=== PATIENT | male | born 1955 | race Caucasian/White ===

== ENCOUNTER 2017-12-08 09:33 | Outpatient (CLI) | payer OTHER, SELFPAY ==
[2017-12-08 11:01] LABS: Bilirubin Negative (Negative); Blood Negative (Negative); Clarity Clear; Glucose Negative (Negative); Ketones Negative (Negative); Leukocyte Esterase Negative (Negative); Nitrite Negative (Negative); Specific Gravity 1.025 (1.005-1.025); Urobilinogen 0.2 EU/dL (Up TO 0.2)
[2017-12-09 10:35] LABS: PSA, Screening 1.1 ng/ml (0-4.5)
== END 2017-12-08 09:53 ==
PROVIDERS: PCP Emergency Medicine; Visit Provider Emergency Medicine
DX: R31.9 Hematuria, unspecified (principal); Z12.5 Encounter for screening for malignant neoplasm of prostate; N40.0 Benign prostatic hyperplasia without lower urinary tract symptoms
CPT/HCPCS: 36415; 84153; 81003

== ENCOUNTER 2018-12-09 01:52 | Outpatient (CLI) | payer OTHER, SELFPAY | END 2018-12-09 02:12 | PROVIDERS: PCP Emergency Medicine; Visit Provider Nurse Practitioner | DX: R35.0 Frequency of micturition (principal); Z12.5 Encounter for screening for malignant neoplasm of prostate | CPT/HCPCS: 36415; 84153 ==

== ENCOUNTER 2019-01-07 08:54 | Emergency (ER) | payer OTHER, SELFPAY ==
[2019-01-07 09:03] VITALS: BP 126/80; PULSE 66; RESP 12; TEMP 36.7; O2SAT 97
--- NOTE | 2019-01-07 09:13 | ED.GENADUL_ITS ---
Discharge Plan Disposition Patient Disposition: HOME Condition: Stable Discharge Details Chief Complaint: HeadInjury Clinical Impression: Head injury, closed, without LOC, Post concussive syndrome Primary Care Provider: Roldan Brown ED Provider: Camelia Smalls Home Meds and New Rx's Prescriptions: Continued tamsulosin [Flomax] 0.4 mg capsule 0.4 mg PO DAILY Qty: 30 RF: 0 multivitamin 1 EACH tablet 1 ea PO DAILY RF: 0 simvastatin [Zocor] 40 mg tablet 40 mg PO DAILY Qty: 90 RF: 4 Discharge Instructions Instructions: Head Injury (ED), Post Concussion Syndrome (ED) Additional Instructions: Take Tylenol or Motrin as needed and directed for pain. Be sure to drink plenty of fluids and get plenty of rest. Limit screen time with cell phone, computer or TV as this may worsen postcon cussive symptoms. Follow-up with your primary care doctor within the next week for reevaluation as needed. Return to the emergency department if you develop any worsening or new concerning symptoms such as persistent headaches, persistent vomiting or worsening dizziness. Discharge Data Discharge Physician: Camelia Smalls Medical Decision Making 0915 -- 63-year-old male with history of hyperlipidemia presents for dizziness after head injury 2 days ago. Patient states he was walking when he slipped on ice hitting the back of his head on the ground. Denies LOC or vomiting. He sustained a superficial laceration to the back of his head which she states is healing well. He states since then he has had intermittent dizziness which he describes as intermittent lightheadedness mainly upon standing and walking. He saw Dr. Brown in the office yesterday and diagnosed with concussion and referred for CT head but he states his insurance did not yet approve this. Patient states he woke up with worsening symptoms of dizziness this morning while getting into his car and came here for further evaluation. He denies headache at any time. He denies fever, neck pain, chest pain, shortness of breath, change in appetite, unilateral numbness or weakness. Vitals within normal limits. He has no focal deficits on exam. Posterior scalp laceration healing well. No palpable skull fracture. No C-spine tenderness. Will refer for CT head. Discussed with patient that postconcussive symptoms can last for several hours to weeks. We will also obtain EKG and screening labs. 1045 --patient still has no acute complaints. Labs and imaging reviewed. Sodium slightly increased at 146 which may support dehydration which may be contributing to his dizziness. CT head negative. Patient denies any dizziness at this time. He states he feels good to go home. He is advised to increase fluid intake, rest, avoid exertional strenuous activity over the next 1 to 2 weeks and avoid screen time. He is advised to follow-up with his primary care doctor for reevaluation and return anytime if worse. Medical Records Medical records reviewed: Yes I reviewed the patient's medical records. Imaging Data Radiologic Study: Radiologist's impression: CT Head Without Contrast Exam date and time: 01/07/2019 9:37 AM Age: 63 years old Clinical history: Other: S/P hit back of head dizziness, R/O acute process TECHNIQUE: Imaging protocol: Computed tomography of the head without contrast. Radiation optimization: All CT scans at this facility use at least one of these dose optimization techniques: automated exposure control; mA and/or kV adjustment per patient size (includes targeted exams where dose is matched to clinical indication); or iterative reconstruction. COMPARISON: No relevant prior studies available. FINDINGS: Brain: Normal. No hemorrhage. Unremarkable white matter. No mass effect. Ventricles: Normal. No ventriculomegaly. Bones/joints: Unremarkable. No acute fracture. Sinuses: Visualized sinuses are unremarkable. No fluid levels. Mastoid air cells: Visualized mastoid air cells are well aerated. Soft tissues: Unremarkable. Vasculature: Atherosclerotic calcifications of the intracranial arteries. IMPRESSION: No acute intracranial abnormality. Lab Data Lab results reviewed: Yes I reviewed the patient's lab results. Labs: Laboratory Tests Range/Units 01/07/19 01/07/19 10:12 10:12 WBC (4.4-10.8) k/cumm 4.66 RBC (4.50-6.00) m/cumm 5.12 Hgb (13.5-17.5) g/dL 14.6 Hct (40.0-50.0) % 46.5 MCV (80-95) fL 90.8 MCH (27.0-33.0) pg 28.5 MCHC (32.0-36.0) g/dL 31.4 L RDW (11.8-14.1) % 15.7 H Plt Count (130-400) x1000/uL 220 MPV (8.0-11.0) fL 10.0 Immature Gran % 0.6 Neutrophils % 71.3 Lymphocytes % 14.8 Monocytes % 11.4 Eosinophils % 1.3 Basophils % 0.6 Absolute Neutrophils (1.2-6.7) k/cumm 3.32 Absolute Lymphocytes (1.2-3.4) k/cumm 0.69 L Absolute Monocytes (0.11-0.7) k/cumm 0.53 Absolute Eosinophils (0.0-0.7) k/cumm 0.06 Absolute Basophils (0.0-0.2) k/cumm 0.03 Sodium (136-145) mmol/L 146 H Potassium (3.5-5.1) mmol/L 4.1 Chloride (98-107) mmol/L 108 H Carbon Dioxide (21.0-32.0) mmol/L 28.1 Anion Gap (3-11) mmol/L 9.9 BUN (7-18) mg/dL 18 Creatinine (0.70-1.30) mg/dL 0.93 Estimated GFR/1.73 m2 (mL/min/1.73m2) >= 60.00 Glucose (74-106) mg/dL 92 Calcium (8.5-10.1) mg/dL 9.0 Total Bilirubin (0.2-1.0) mg/dL 0.6 AST (15-37) U/L 22 ALT (16-63) U/L 38 Alkaline Phosphatase (46-116) U/L 69 Total Protein (6.4-8.2) g/dL 7.7 Albumin (3.4-5.0) g/dL 3.6 ECG Data Attestation: I personally reviewed and interpreted this ECG (s) as follows: Interpretation: Rate of 73, sinus, T wave inversion in aVL. No acute ST elevation or depression. [place] 168. QTc 450. No old EKG to compare. HPI General Mode of arrival: ambulatory . Date/Time Provider Initiated Documentation: 01/07/19 09:06 . Limitations to Documentation: no limitations . Information obtained by: patient . History of Present Illness 63 year old M presents to the emergency department with the chief complaint of Dizziness after head injury , described as moderate, and is localized to the head. Patient reports no radiation. Patient started experiencing this day(s) (2) and it has been intermittent. Rest improves symptom(s), Movement worsens sym ptoms . Patient notes denies chest pain, cough, diaphoresis, fever/chills, headaches, loss of appetite, malaise, nausea/vomiting, rash, seizure, shortness of breath, syncope and weakness. Patient did receive the following treatments prior to arrival, none Related Data Home Medications Medication Instructions Recorded Confirmed multivitamin 1 ea PO DAILY 09/02/12 01/06/19 simvastatin 40 mg tablet 40 mg PO DAILY #90 tab-cap 04/28/18 01/06/19 tamsulosin 0.4 mg capsule 0.4 mg PO DAILY #30 cap 12/08/18 01/06/19 Previous Rx's Medication Instructions Recorded simvastatin 40 mg tablet 40 mg PO DAILY #90 tab-cap 04/28/18 tamsulosin 0.4 mg capsule 0.4 mg PO DAILY #30 cap 12/08/18 Allergies Allergy/AdvReac Type Severity Reaction Status Date / Time No Known Allergies Allergy Verified 01/06/19 12:50 General Stated Complaint: HeadInjury LITO: 3 Review of Systems All systems reviewed & are unremarkable except as noted in HPI and below Constitutional Constitutional: Reports as per HPI, Denies chills and Denies fever(s) Eyes Eyes: Denies blurry vision ENT Ears, Nose, Mouth, and Throat: Reports dizziness, Denies sore throat and Denies throat swelling Cardiovascular Cardiovascular: Denies chest pain and Denies dyspnea Respiratory Respiratory: Denies cough and Denies dyspnea Gastrointestinal Gastrointestinal: Denies abdominal pain, Denies diarrhea and Denies vomiting Genitourinary Genitourinary: Denies hematuria and Denies dysuria Musculoskeletal Musculoskeletal: Denies back pain and Denies numbness Integumentary/Breasts Skin/Breast: Denies lesions and Denies rash Neurologic Neurologic: Reports dizziness, Denies focal weakness and Denies numbness Allergic/Immunologic Allergic/Immunologic: Denies throat swelling [facility] Medical History BPH (benign prostatic hyperplasia) (Chronic) GERD (gastroesophageal reflux disease) (Inactive 07/26/13) Hyperlipidemia (Inactive 07/26/13) Surgical History Colonoscopy - IV Sedation (06/15/16) Family History Mother , age 69 Colon cancer Father , age 79 Rectal cancer Sister , age 47 Depression Sister Diabetes Son , AGE 21 No problems noted. Daughter No problems noted. Social History Smoking/Tobacco Use Status: Never Alcohol Intake: current Alcohol Intake frequency: a few times a month Alcohol type: hard liquor Drug use: Never Substance use type: does not use Caregiver/Support person: No Household members: spouse Communication Needs: None Do you need help understanding health information?: Never current occupation: SALES Pets and animals: No Sexually active: Yes Do you think of yourself as: straight/heterosexual Current gender identity: male What is your relationship status?: How often do you talk on the phone with friends or family?: twice per week How often do you get together with friends or relatives?: once per week How often do you attend muslim or adventist services?: 4 or more times per year Do you belong to any clubs or organized social groups?: yes Panel score (0-1 are the most socially isolated patients): 4 What type of physical activity do you participate in: walking and decline to answer Duration: 15-30 minutes/day Frequency: 3-4 times per week Conchis/Adventism: Oriental Orthodox Special conchis needs: No Seatbelt use: always Helmet use: Yes Helmet use: always Drive 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 Head: normal to inspection and normocephalic Head images: 1. Well healing 2cm S shaped superficial laceration noted on crown of head. No step off, erythema, edema, induration, fluctuance, drainage or bleeding. Ears: hearing grossly normal bilaterally, external ears normal and TM's normal bilaterally General nose exam: external nose normal Mouth: oral mucosae normal Eyes General: appearance normal, both eyes and all related structures Neck Neck: normal visual inspection, no meningeal signs, trachea midline and supple Resp Effort & Inspection: normal respiratory effort and able to speak in complete sentences Auscultation: clear to auscultation bilaterally Cardio Rate: regular rate Rhythm: regular rhythm GI Palpation: soft, not firm, no masses, not rigid and nontender Auscultation: normal bowel sounds Back/Spine/Pelvis Cervical Spine: cervical ROM normal, No cervical muscular tenderness and No cervical spinal tenderness Thoracic/Lumbar Spine: thoracic and lumbar spine normal to inspection Skin General skin exam: no rashes or lesions noted Neuro General: alert, awake and oriented x3 Cranial Nerves: CN's II-XI intact bilaterally, PERRL, EOM intact bilaterally, facial strength normal, tongue midline, hearing normal, able to rotate head bilaterally and able to elevate shoulders bilaterally Cognition: normal cognition Speech: speech normal Gait: normal gait Motor: muscle tone normal throughout, strength 5/5 throughout, no pronator drift and no movement abnormalities noted Coordination: [id number] test normal and rapid alternating movement UE norm al Extrem General: normal to inspection and full ROM Psych Appearance: grossly normal Affect: normal affect Course Vital Signs Vital signs: Vital Signs Temperature 98.1 F 01/07/19 09:03 Pulse 66 01/07/19 09:03 Respiratory Rate 12 01/07/19 09:03 Blood Pressure 126/80 01/07/19 09:03 Pulse Oximetry 97 01/07/19 09:03 Temperature 98.1 F 01/07/19 09:03 Pulse 66 01/07/19 09:03 Respiratory Rate 12 01/07/19 09:03 Respiratory Effort Non-Labored 01/07/19 09:06 Respiratory Depth Normal 01/07/19 09:06 Respiratory Pattern Normal 01/07/19 09:06 Blood Pressure 126/80 01/07/19 09:03 Blood Pressure Position Sitting 01/07/19 09:03 Pulse Oximetry 97 01/07/19 09:03 Oxygen Delivery Method Room Air 01/07/19 09:03 Oxygen Flow Rate 0 01/07/19 09:03 Pain Level 0 01/07/19 09:06
--- NOTE | 2019-01-07 09:45 | DI.CT_ITS ---
EXAM: CT HEAD WO CLINICAL HISTORY: s/p hit back of head, dizziness, r/o acute process TECHNIQUE: The exam was performed according to the usual protocol without contrast. COMPARISON: no exams were available for comparison FINDINGS: No intracranial hemorrhage, mass or infarct is seen. The ventricles are normal in size. There are no significant white matter changes. There is no evidence of skull fracture. The sinuses and mastoi d air cells appear clear where visualized. IMPRESSION: Negative head CT.
--- NOTE | 2019-01-07 10:18 | DI.VRAD_ITS ---
PROCEDURE INFORMATION: Exam: CT Head Without Contrast Exam date and time: 01/07/2019 9:37 AM Age: 63 years old Clinical history: Other: S/P hit back of head dizziness, R/O acute process TECHNIQUE: Imaging protocol: Computed tomography of the head without contrast. Radiation optimization: All CT scans at this facility use at least one of these dose optimization techniques: automated exposure control; mA and/or kV adjustment per patient size (includes targeted exams where dose is matched to clinical indication); or iterative reconstruction. COMPARISON: No relevant prior studies available. FINDINGS: Brain: Normal. No hemorrhage. Unremarkable white matter. No mass effect. Ventricles: Normal. No ventriculomegaly. Bones/joints: Unremarkable. No acute fracture. Sinuses: Visualized sinuses are unremarkable. No fluid levels. Mastoid air cells: Visualized mastoid air cells are well aerated. Soft tissues: Unremarkable. Vasculature: Atherosclerotic calcifications of the intracranial arteries. IMPRESSION: No acute intracranial abnormality. Dictated and Authenticated by: Otto Dent MD. Ordering:MIGEL Denise MD
[2019-01-07 10:19] LABS: Abs Immature Grans 0.03 k/cumm (0.0-0.09); Absolute Basophil Count 0.03 k/cumm (0.0-0.2); Absolute Eosinophil Count 0.06 k/cumm (0.0-0.7); Absolute Lymphocyte Count 0.69 k/cumm (1.2-3.4); Absolute Monocyte Count 0.53 k/cumm (0.11-0.7); Absolute Neutrophil Count 3.32 k/cumm (1.2-6.7); Basophils % 0.6; Eosinophils % 1.3; HCT 46.5 % (40.0-50.0); HGB 14.6 g/dL (13.5-17.5); Immature Grans % 0.6; Lymphocytes % 14.8; Mean Corp. HGB Concentration 31.4 g/dL (32.0-36.0); Mean Corpuscular Hemoglobin 28.5 pg (27.0-33.0); Mean Corpuscular Volume 90.8 fL (80-95); Monocytes % 11.4; Neutrophils % 71.3; Platelet Count 220 x1000/uL (130-400); RBC 5.12 m/cumm (4.50-6.00); RBC Distribution Width 15.7 % (11.8-14.1); White Blood Cell Count 4.66 k/cumm (4.4-10.8)
[2019-01-07 10:32] LABS: ALT 38 U/L (16-63); AST 22 U/L (15-37); Albumin 3.6 g/dL (3.4-5.0); Alkaline Phosphatase 69 U/L (46-116); Anion Gap 9.9 mmol/L (3-11); BUN 18 mg/dL (7-18); Bilirubin, Total 0.6 mg/dL (0.2-1.0); CO2 28.1 mmol/L (21.0-32.0); CREATININE 0.93 mg/dL (0.70-1.30); Chloride 108 mmol/L (98-107); Glucose 92 mg/dL (74-106); Potassium 4.1 mmol/L (3.5-5.1); Sodium 146 mmol/L (136-145); Total Protein 7.7 g/dL (6.4-8.2)
[2019-01-07 11:00] VITALS: BP 124/83; PULSE 67; RESP 18; TEMP 36.8; O2SAT 96
== END 2019-01-07 10:57 | disposition home or self-care (01) ==
PROVIDERS: Emergency Provider Physician Assistant; PCP Emergency Medicine
DX: S09.90XA Unspecified injury of head, initial encounter (principal); F07.81 Postconcussional syndrome; W00.0XXA Fall on same level due to ice and snow, initial encounter; R42 Dizziness and giddiness
CPT/HCPCS: 36415; 80053; 93005; 99285; 70450; 85025; 93010

== ENCOUNTER 2019-07-17 07:08 | Outpatient (CLI) | payer OTHER, SELFPAY ==
[2019-07-17 17:02] LABS: Abs Immature Grans 0.02 k/cumm (0.0-0.09); Absolute Basophil Count 0.01 k/cumm (0.0-0.2); Absolute Eosinophil Count 0.06 k/cumm (0.0-0.7); Absolute Lymphocyte Count 0.77 k/cumm (1.2-3.4); Absolute Neutrophil Count 3.03 k/cumm (1.2-6.7); Basophils % 0.2; Eosinophils % 1.4; HGB 13.7 g/dL (13.5-17.5); Immature Grans % 0.5 %; Lymphocytes % 17.5; Mean Corp. HGB Concentration 31.1 g/dL (32.0-36.0); Mean Corpuscular Volume 89.8 fL (80-95); Mean Platelet Volume 9.6 fL (8.0-11.0); Monocytes % 11.4; Platelet Count 207 x1000/uL (130-400); RBC Distribution Width 16.8 % (11.8-14.1); White Blood Cell Count 4.39 k/cumm (4.4-10.8)
[2019-07-17 17:45] LABS: ESR 32 mm/hr (1-20)
[2019-07-17 17:58] LABS: ALT 30 U/L (16-63); AST 17 U/L (15-37); Albumin 3.8 g/dL (3.4-5.0); Alkaline Phosphatase 63 U/L (46-116); Anion Gap 6.7 mmol/L (3-11); BUN 21 mg/dL (7-18); Bilirubin, Total 0.5 mg/dL (0.2-1.0); C-Reactive Protein 0.16 mg/dL (0.0-0.3); CO2 28.3 mmol/L (21.0-32.0); CREATININE 0.84 mg/dL (0.70-1.30); Calcium 8.7 mg/dL (8.5-10.1); Chloride 105 mmol/L (98-107); Glucose 91 mg/dL (74-106); Potassium 4.1 mmol/L (3.5-5.1); Sodium 140 mmol/L (136-145); Total Protein 7.2 g/dL (6.4-8.2); Uric Acid 5.8 mg/dL (3.5-7.2)
== END 2019-07-17 07:28 ==
PROVIDERS: PCP Emergency Medicine; Visit Provider Podiatrist
DX: M10.9 Gout, unspecified (principal); M19.90 Unspecified osteoarthritis, unspecified site
CPT/HCPCS: 36415; 80053; 85652; 84550; 85025; 86140

== ENCOUNTER 2019-11-20 06:12 | Day surgery (SDC) | payer OTHER, SELFPAY ==
[2019-11-20 06:23] VITALS: BP 109/73; PULSE 69; RESP 14; TEMP 36.6; O2SAT 97
--- NOTE | 2019-11-20 06:35 | W.COLOREPORT ---
Date of service: 11/20/19 Time of Service: Colonoscopy Report Date of procedure: 11/20/19 Pre-op diagnosis general: Hx of colon polyps Post-op diagnosis procedure note: same (Ascending polyp and mild diverticulosis) Procedure: Colonoscopy with polypectomy Surgeon: Caitlyn Leonard Anesthesia proc note operative: other (General/ ASA 2/Minesh Hale CRNA) Estimated blood loss (mL): 5 Pathology: other (Ascending polyp) Complications: None Disposition: same day Indications: The patient is here for Colonoscopy pre-op. 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 He also has a family history of colon cancer in his Mother and Rectal Cancer in his Father. He has not had any bowel habit changes. -Discussed colonoscopy bowel prep as well as the procedure. Discussed possible complications of the procedure to include bleeding, pain, perforation, missed small lesion/polyp, sore throat, aspiration and adverse reaction to the medications. Questions were answered to patient?s satisfaction. No guarantees were implied or given. Prep: Miralax/Dulcolax Procedure Start Time: Procedure End Time: 08: Retraction Time: 60 minutes Findings: large flat adenomatous polyp in the ascending colon mild diverticulosis Procedure Description: After informed consent was obtained the patient was taken to the procedure room and placed in a left decubitous position. Monitors were applied and a time out was done. The patients name, date of , procedure, allergies to medications and metal in their body was reviewed. The patient was then sedated. Once sedated and comfortable a rectal exam was done. External exam revealed skin tags. Internal exam revealed a normal sphincter tone and no palpable masses. The prostate felt smooth. The scope was then introduced and retro-flexed. No internal hemorrhoids were identified. The scope was then advanced to the cecum without difficulty. The ileocecal vlave and appendiceal orifice were identified. The prep was adequate. The scope was then slowly retracted over 60 minutes back into the rectum. Polyps were removed with hot snare and forceps in the ascending colon. The polyp was just proximal to the tattoed area from his last colonoscopy. The polyp was flat and was >1 cm. There was also mild diverticulosis of the sigmoid colon. The scope was removed and the patient was woken up and taken back to Same day surgery in stable condition. The patient tolerated the procedure well and there were no immediate complications. Follow up: Follow up will depend on final pathology results
--- NOTE | 2019-11-20 06:36 | W.PM.DSUDISC ---
Discharge Plan Disposition Patient Disposition: HOME Condition: Stable Discharge Details Reason For Visit: colonoscopy Attending Provider: Caitlyn Leonard Primary Care Provider: Roldan Brown Home Meds and New Rx's Prescriptions: Continued multivitamin 1 EACH tablet 1 ea PO DAILY RF: 0 simvastatin [Zocor] 40 mg tablet 40 mg PO DAILY Qty: 90 RF: 4 Discontinued bisacodyl [Dulcolax (bisacodyl)] 5 mg tablet,delayed release (DR/EC) 5 mg PO ONCE Qty: 4 RF: 0 polyethylene glycol 3350 17 gram powder in packet 255 g PO DAILY Qty: 15 RF: 0 polyethylene glycol 3350 17 gram/dose powder 238 g PO ONCE Qty: 238 RF: 0 bisacodyl [Dulcolax (bisacodyl)] 5 mg tablet,delayed release (DR/EC) 5 mg PO ONCE Qty: 4 RF: 0 Discharge Instructions Instructions: Diverticulosis (DC) Additional Instructions: Findings: flat polyp around the same area as your last colonoscopy mild diverticulosis Follow up: will depend on final pathology Please call if you develop: fevers >101.5 Nausea or Vomiting Abdominal pain that is not transient DAY SURGERY UNIT POST ENDOSCOPY INSTRUCTIONS 1. Because there will be medication in your system for the next 24 hours, you may feel a little sleepy. Your coordination will be affected. Therefore: a. Do not drive or operate dangerous equipment for 24 hours. b. Do not drink alcohol beverages for 24 hours (not even beer). c. Plan to go home and rest for the day. 2. Generally there are no restrictions on your activity after a day or so has gone by, but you may feel a bit fatigued for a few days. 3 After you arrive home you may have a light meal and return to a normal diet as you can tolerate it without feeling sick to your stomach. 4. After surgery, you may feel pain or discomfort. This should be only transient, but if it persists please contact your doctor. 5. If there are any questions regarding the findings of your procedure, please feel free to contact your doctor. 6. If you are unable to contact your doctor with a problem, contact the hospital at [phone]. 7. Continue all your regular medications unless directed otherwise. I understand the above instructions and have no questions. Signature of Patient or Responsible Adult Escort Date/Time Name of Responsible Adult Escort Signature of Nurse Date/Time Activity:: Activity as Tolerated Diet:: High Fiber diet Discharge Orders Discharge Orders: Discharge Order (Routine); Ordered 11/20/19 Ordered By: Caitlyn Leonard
[2019-11-20] MEDS: Lactated Ringers 1,000 ML 80 ML IV ×2 (06:40→07:34)
--- NOTE | 2019-11-20 07:45 | BOWEL_PTH ---
PATIENT: Enrrique Theodore JR LOC: [facility] U#:[id number] AGE/SX: 64/M ROOM: RE11/20/[address]: Caitlyn Leonard MD : [id number] BED: DIS: 11/20/2019 SPEC #: [id number] RECD: 11/20/19 12:52 STATUS: STEPHANIE REQ #: [id number] SHEMAR: 11/20/19 07:[address]: Caitlyn Leonard DEPT: Surgical Specimen RECD BY: Dolores Khan ENTERED: 11/20/19 12:52 SP TYPE: Bowel OTHR DR: Roldan Brown DO Tissues: 1 - BIOPSY BOWEL Procedures: GROSS AND MICRO LEVEL 4 Comments: [id number]
[2019-11-20 09:14] VITALS: BP 117/80; PULSE 62; RESP 16; TEMP 36.5; O2SAT 96
== END 2019-11-20 09:41 | disposition home or self-care (01) ==
PROVIDERS: PCP Emergency Medicine; Visit Provider Surgery
PROC: 0DJD8ZZ Inspection of Lower Intestinal Tract, Via Natural or Artificial Opening Endoscopic (ICD-10-PCS; CPT 45378; principal; 2019-11-20 07:30)
DX: Z12.11 Encounter for screening for malignant neoplasm of colon (principal); D12.2 Benign neoplasm of ascending colon; Z80.0 Family history of malignant neoplasm of digestive organs; Z86.010 Personal history of colon polyps; K57.30 Diverticulosis of large intestine without perforation or abscess without bleeding
CPT/HCPCS: 45385; 88305; J2001; J2704

== ENCOUNTER 2020-09-11 09:56 | Outpatient (CLI) | payer OTHER, SELFPAY ==
--- NOTE | 2020-09-11 09:15 | DI.RAD_ITS ---
Exam(s) XR KNEE LT 3V AP,LAT,GISELA EXAM: XR KNEE LT 3V AP,LAT,GISELA CLINICAL HISTORY: fall down stairs, on knee 2 mo ago: edema perists [id number] INJURY. TECHNIQUE: 2D digital imaging was performed. COMPARISON: No exams were available for comparison FINDINGS: There is no evidence of fracture or joint effusion. Minimal degenerative changes. No joint space na rrowing. No osteophytes. Bone density is normal. No osseous lesions. IMPRESSION: DATA REPOSITORY: RADIATION DOSE DELIVERED:
== END 2020-09-11 10:16 ==
PROVIDERS: PCP Emergency Medicine
DX: S89.90XA Unspecified injury of unspecified lower leg, initial encounter (principal); W10.9XXA Fall (on) (from) unspecified stairs and steps, initial encounter; Y99.8 Other external cause status
CPT/HCPCS: 73562

== ENCOUNTER 2022-03-20 01:37 | Outpatient (CLI) | payer OTHER, SELFPAY ==
[2022-03-20 08:24] LABS: ALT 30 U/L (16-63); AST 18 U/L (15-37); Albumin 3.7 g/dL (3.4-5.0); Alkaline Phosphatase 68 U/L (46-116); Anion Gap 7.4 mmol/L (3-11); BUN 16 mg/dL (7-18); Bilirubin, Total 0.7 mg/dL (0.2-1.0); CO2 28.6 mmol/L (21.0-32.0); CREATININE 0.9 mg/dL (0.70-1.30); Calcium 9.1 mg/dL (8.5-10.1); Chloride 106 mmol/L (98-107); Estimated GFR 93.61 (mL/min/1.73m2); Glucose 114 mg/dL (74-106); Potassium 3.8 mmol/L (3.5-5.1); Sodium 142 mmol/L (136-145); Total Protein 7.6 g/dL (6.4-8.2)
[2022-03-20 20:16] LABS: PSA, Screening 1.5 ng/mL (<=4.5)
[2022-03-23 10:40] LABS: Hepatitis C Ab w Rflx HCV PCR Negative (Negative)
== END 2022-03-20 01:38 | disposition home or self-care (01) ==
LOC: LBO 01:37
PROVIDERS: PCP Family Medicine; Visit Provider Family Medicine
DX: Z00.00 Encounter for general adult medical examination without abnormal findings (principal); E78.5 Hyperlipidemia, unspecified; Z12.5 Encounter for screening for malignant neoplasm of prostate; Z11.59 Encounter for screening for other viral diseases
CPT/HCPCS: 36415; 80053; 84153; 86803

== ENCOUNTER 2022-06-09 12:12 | Outpatient (CLI) | payer OTHER, SELFPAY ==
--- NOTE | 2022-06-09 11:02 | DI.RAD_ITS ---
Exam(s) XR SHOULDER LT COMPLETE 2+V XR HUMERUS LT EXAM: XR HUMERUS LT CLINICAL HISTORY: fall, left upper arm and shoulder pain,m25.512,m79.622,w19.xxxa. TECHNIQUE: 2D digital imaging was performed of the left shoulder and humerus. Seven images were obt ained. AP, Grashey, Y, axillary and lateral views were obtained. COMPARISON: CR XR SHOULDER LT COMPLETE 2+V from 06/09/2022 FINDINGS: BONES: No acute fracture is present. No bony destructive lesion is seen. Mild degenerative changes ar e seen at the acromioclavicular joint characterized by bony hypertrophy. The glenohumeral joint is w ell maintained. SOFT TISSUE: Normal. IMPRESSION: No acute fracture or dislocation. DATA REPOSITORY: RADIATION DOSE DELIVERED:
== END 2022-06-09 12:32 ==
LOC: DI 12:17
PROVIDERS: PCP Family Medicine; Visit Provider Nurse Practitioner Family
DX: M25.512 Pain in left shoulder (principal); M79.622 Pain in left upper arm; W19.XXXA Unspecified fall, initial encounter
CPT/HCPCS: 73030; 73060

== ENCOUNTER → 2022-11-03 10:50 | Outpatient (BNVA) | payer MEDICARE, SELFPAY | PROVIDERS: PCP Family Medicine; Referring Provider Family Medicine; Visit Provider Physical Therapy Assistant | DX: Z86.010 Personal history of colon polyps (principal); Z80.0 Family history of malignant neoplasm of digestive organs; Z12.11 Encounter for screening for malignant neoplasm of colon ==

== ENCOUNTER 2022-12-03 06:09 | Day surgery (SDC) | payer MEDICARE, SELFPAY ==
[2022-12-03 06:31] VITALS: BP 120/78; PULSE 65; RESP 16; TEMP 36.6; O2SAT 98
[2022-12-03] MEDS: Lactated Ringers 1,000 ML 80 ML IV (06:59)
--- NOTE | 2022-12-03 07:04 | W.ANESPRE ---
General Info Date of Service Date Performed: 12/03/22 Height: 6 ft Weight: 91 kg Body Mass Index (BMI): 27.1 Surgical Procedure: Operation Date: 12/03/22 07:35 Proposed Procedure Side Surgeon p Colonoscopy William Bajwa MD Meds Allergies and Home Medications Allergies Allergy/AdvReac Type Severity Reaction Status Date / Time No Known Allergies Allergy Verified 12/03/22 06:37 Home Medication Medication Instructions Recorded multivitamin 1 ea PO DAILY 09/02/12 sildenafil 50 mg tablet (Viagra) 50 mg PO DAILY PRN sexual activity 04/15/22 #7 tabs simvastatin 40 mg tablet (Zocor) 40 mg PO DAILY #90 tab-caps 04/15/22 tamsulosin 0.4 mg capsule (Flomax) 0.4 mg PO QHS #90 caps 04/15/22 cyclobenzaprine 5 mg tablet 5 mg PO TID PRN muscle spasm #60 06/10/22 tabs bisacodyl 5 mg tablet,delayed 5 mg PO ONCE Colonoscopy Bowel 11/03/22 release (Dulcolax (bisacodyl)) Prep #4 tabs polyethylene glycol 3350 17 238 g PO ONCE Colonoscopy Bowel 11/03/22 gram/dose oral powder Prep #238 grams Current Visit Medications: Current Medications Generic Name Dose Route Start Last Admin Trade Name Freq PRN Reason Stop Dose Admin Ringer's Solution 1,000 mls @ 80 mls/hr 12/03/22 06:00 12/03/22 06:59 IV 01/01/23 23:59 80 mls/hr INFUSION KOSTA Administration IV Miscellaneous Supplies 1 each 12/03/22 06:00 Iv Access IV 01/01/23 23:59 DIRECTED KOSTA Sodium Chloride 0 ml 12/03/22 06:00 Normal Saline Flush 10 Ml Syr IV 01/01/23 23:59 PRN PRN Sodium Chloride 0 ml 12/03/22 06:00 Normal Saline 10 Ml Vial IJ 01/01/23 23:59 DIRECTED PRN Sterile Water 0 ml 12/03/22 06:00 Water,Injection,Sterile 10 Ml Vial IJ 01/01/23 23:59 DIRECTED PRN PFSH Active Problems Active Problems: Problem Status Onset Code Tendinopathy of rotator cuff M67.919 Hyperlipidemia E78.5 Venous stasis dermatitis of left lower extremity I87.2 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 Surgical History Surgical History Colonoscopy - IV Sedation (06/15/16) colo -11/20/2019 Tobacco Smoking/Tobacco Use Status: Never Passive smoking exposure: Yes Second hand exposure: Yes Alcohol Alcohol Intake: current Alcohol intake frequency: holidays/special occasions only Alcohol type: hard liquor Substance Use Substance use: Never Substance use type: does not use Vital Signs and Lab Results Vital Signs Most Recent Vital Signs in EMR: Most Recent Vital Signs Temp Pulse Resp BP Pulse Ox 36.6 C 65 16 120/78 98 12/03/22 06:31 12/03/22 06:31 12/03/22 06:31 12/03/22 06:31 12/03/22 06:31 Lab Results Blood Type / Crossmatch: No Data to Display Complete Blood Count: No Data to Display Complete Metabolic Panel: No Data to Display Liver Function Panel: No Data to Display Coagulation Panel: No Data to Display Cardiac Panel: No Data to Display Arterial Blood Gas: No Data to Display Venous Blood Gas: No Data to Display Pancreas Panel: No Data to Display Thyroid Panel: No Data to Display Infectious Disease: No Data to Display Blood Cultures: No Data to Display Toxicology Panel: No Data to Display Anesthesia Assessment and Plan Anesthesia History Personal History: No History of Anesthesia Complications Family History: No Family History of Anesthesia Complications Exercise Tolerance Exercise Tolerance: Metabolic Equivalents>4 Pertinent Negatives Pertinent Negatives: No Symptoms of GERD, No Major Cardiovascular Symptoms or Complaints and No Major Pulmonary Symptoms or Complaints Cardiac & Pulmonary Exam Cardiac Exam: Normal S1/S2 Heart Sounds Pulmonary Exam: Clear Bilateral Breath Sounds Implantable Cardiac Device Does patient have a Pacemaker or an ICD?: No Airway Exam Known Difficult Airway: No Mallampati Class: 1 Mouth Opening: Normal (> 3cm) Thyromental Distance: Greater than 3 cm Neck Range of Motion: Full ROM Neck Circumference: Normal Teeth Condition: Normal Dentition ASA Classification ASA Score: ASA 2 Emergency Case?: No NPO Status NPO Status: NPO Clears >2 hours, Solids >8 hours Anesthesia Plan Resuscitation Status: Full Code Anesthesia Technique: General Anesthesia Airway Planned: Natural Airway Monitors Used: Standard Monitors
[2022-12-03 07:06] VITALS: BMI 27.1
--- NOTE | 2022-12-03 08:00 | BOWEL_PTH ---
PATIENT: Enrrique Theodore JR LOC: [facility] U#:[id number] AGE/SX: 67/M ROOM: RE12/03/[address]: William Bajwa : 1955 BED: DIS: 12/03/2022 SPEC #: [id number] RECD: 12/03/22 10:31 STATUS: STEPHANIE REQ #: [id number] SHEMAR: 12/03/22 08:[address]: William Bajwa DEPT: Surgical Specimen RECD BY: Dolores Khan ENTERED: 12/03/22 10:32 SP TYPE: Bowel OTHR DR: Betty Yeager Tissues: 1 - BIOPSY BOWEL Procedures: GROSS AND MICRO LEVEL 4 Comments: [id number]
[2022-12-03 08:13] VITALS: BP 120/96; PULSE 69; RESP 20; TEMP 36.4; O2SAT 94
--- NOTE | 2022-12-03 08:19 | W.PM.OP ---
Date of service: 12/03/22 Time of Service: 08:19 Operative Note Operative Note Refer to Anesthesia Record Procedure Description: Procedures performed: 1. Colonoscopy with snare polypectomy x1 2. Ablation fulguration destruction of polyp x1 3. Endoscopic clip applied x2 Preoperative diagnosis: Surveillance colonoscopy Postoperative diagnosis: Colon polyps, mild sigmoid diverticulosis, mild grade 1 internal hemorrhoids Surgeon: Shailesh Bajwa Anesthesia: [facility] Indication for procedure: Patient is a 67-year-old man with a history of large tubulovillous adenoma removed from the ascending colon 3 years ago. He has no symptoms. He has a family history of colorectal cancer in his father. Findings: The tattoo site was easily found. There is recurrent polyp on top of the tattoo. It is sessile and about 15 mm in width. Very flat. It was removed piecemeal with hot snare and about 5 different pieces. I then ablated the periphery with the tip of the hot snare. There was a relatively large mucosal defect at this point and I reapproximated it with clips. No other polyps were seen. There are mild diverticular changes in the sigmoid colon only. Minimal/grade 1 internal hemorrhoid disease. Surveillance/follow-up recommendations: I recommend repeating another colonoscopy in 3 to 6 months to ensure complete destruction of the polyp since it was regrowth. Complications: None Blood loss: Minimal Specimens:?? YES Quality of Prep:?? Good Procedure in detail: Written consent was obtained from the patient who was in agreement with the risks, benefits and indications of the procedure.? We went to the endoscopy suite and laid the patient in left lateral decubitus position.? Anesthesia was administered which was tolerated well.? A timeout was performed and when we are all in agreement we began the procedure. Digital rectal exam and visual examination was performed and within normal limits.? A well?lubricated colonoscope was advanced without difficulty all the way to the cecum identified by the ileocecal valve, and triangular folds and appendiceal orifice.? It was then slowly withdrawn.?? Retroflexion was performed in the rectum.? The findings/interventions are noted above. The scope was then removed and the patient tolerated the procedure well and was then taken back to the PACU in hemodynamically stable condition.
--- NOTE | 2022-12-03 08:23 | W.PM.DSUDISC ---
Date of service: 12/03/22 Time of Service: 08:23 Discharge Plan Disposition Patient Disposition: Home Condition: Good Discharge Details Attending Provider: William Bajwa Primary Care Provider: Betty Yeager Home Meds and New Rx's Prescriptions: No Action bisacodyl [Dulcolax (bisacodyl)] 5 mg tablet,delayed release (DR/EC) 5 mg PO ONCE Qty: 4 0RF Rx Instructions: Colonoscopy Bowel Prep- Per Instructions polyethylene glycol 3350 17 gram/dose powder 238 g PO ONCE Qty: 238 0RF Rx Instructions: Colonoscopy Bowel Prep- Per Instructions multivitamin 1 EACH tablet 1 ea PO DAILY sildenafil [Viagra] 50 mg tablet 50 mg PO DAILY PRN (Reason: sexual activity) Qty: 7 5RF Rx Instructions: administer 1 hour before activity. Use 1/2 to 1 tablet. simvastatin [Zocor] 40 mg tablet 40 mg PO DAILY Qty: 90 4RF tamsulosin [Flomax] 0.4 mg capsule 0.4 mg PO QHS Qty: 90 3RF cyclobenzaprine 5 mg tablet 5 mg PO TID PRN (Reason: muscle spasm) Qty: 60 0RF Patient Comments: Haven't needed to use Rx Instructions: Take 1 tablet by mouth three times a day as needed for back pain Discharge Instructions Stand Alone Forms: Colonoscopy Post Instructions Activity:: Activity as Tolerated Diet:: As Tolerated DS: Diagnosis Discharge Diagnosis (1) Tubulovillous adenoma: Status: Acute
[2022-12-03 08:33] VITALS: BP 129/86; PULSE 80; RESP 19; TEMP 36.7; O2SAT 96
[2022-12-03 08:40] VITALS: PULSE 57; RESP 16; RESP 9; O2SAT 96
[2022-12-03] MEDS: Albuterol/Ipratropium 3 ML UPD VIAL UPD (08:40)
[2022-12-03 08:48] VITALS: PULSE 63; RESP 16; RESP 2; RESP 9; O2SAT 98
--- NOTE | 2022-12-03 09:04 | W.ANESPOSTOP ---
Postoperative Evaluation Date, Time and Location Date Performed: 12/03/22 Time Performed: 09:02 Patient Location: Day Surgery Unit Vital Signs Most Recent Imported Vital Signs: Most Recent Vital Signs Temp Pulse Resp BP Pulse Ox 36.7 C 63 16 129/86 98 12/03/22 08:33 12/03/22 08:48 12/03/22 08:48 12/03/22 08:33 12/03/22 08:48 Pain Score Most Recent Pain Score: Most Recent Pain Score Pain Level 0 12/03/22 08:33 Assessment Mental Status: Awake (Alert & Oriented to Patient Baseline) Airway and Respiratory Function: Patent airway with normal (patient baseline) respiratory exam Cardiovascular Function: Hemodynamically Stable Hydration Status: Adequately Hydrated Nausea & Vomiting: No Nausea or Vomiting Pain: Pt. Denies Any Pain Peripheral Nerve Block: Patient did not receive a nerve block Postoperative Comments:: Discussed potential for aspiration, but unlikely given clinical picture. Patient is doing well.
== END 2022-12-03 09:22 | disposition home or self-care (01) ==
PROVIDERS: PCP Family Medicine; Visit Provider Student in an Organized Health Care Education/Training Program
PROC: 0DJD8ZZ Inspection of Lower Intestinal Tract, Via Natural or Artificial Opening Endoscopic (ICD-10-PCS; CPT 45378; principal; 2022-12-03 07:30)
DX: D37.4 Neoplasm of uncertain behavior of colon; K57.30 Diverticulosis of large intestine without perforation or abscess without bleeding; Z12.11 Encounter for screening for malignant neoplasm of colon; Z63.5 Disruption of family by separation and divorce
CPT/HCPCS: 45385; 00123; 88305; 94640; 94760; J2001; J2704; J7620

== ENCOUNTER → 2023-04-21 10:20 | Outpatient (CLI) | payer MEDICARE, SELFPAY ==
--- NOTE | 2023-04-21 09:35 | DI.RAD_ITS ---
Exam(s) XR FOOT RT COMPLETE EXAM: XR FOOT RT COMPLETE CLINICAL HISTORY: Right foot pain, M79.671. TECHNIQUE: 2D digital imaging was performed. Three views. COMPARISON: No exams were available for comparison FINDINGS: BONES: No acute fracture is present. No bony destructive lesion is seen. JOINTS: No dislocation present. Moderate degenerative changes of the 1st MTP joint. No hallux valgu s. Hammertoe deformity of the 2nd toe. SOFT TISSUE: Normal. IMPRESSION: Degenerative changes of the 1st MTP joint. DATA REPOSITORY: RADIATION DOSE DELIVERED:
== END ==
PROVIDERS: PCP Family Medicine; Visit Provider Podiatrist
DX: M79.671 Pain in right foot (principal)
CPT/HCPCS: 29580; 29850; 73630

== ENCOUNTER → 2023-04-29 15:40 | Outpatient (BNVA) | payer MEDICARE, SELFPAY | PROVIDERS: PCP Family Medicine; Referring Provider Family Medicine; Visit Provider Physical Therapy Assistant | DX: Z12.11 Encounter for screening for malignant neoplasm of colon (principal); Z86.010 Personal history of colon polyps ==

== ENCOUNTER 2023-05-10 09:49 | Day surgery (SDC) | payer MEDICARE, SELFPAY ==
[2023-05-10 10:15] VITALS: BP 123/78; PULSE 71; RESP 18; TEMP 36.3; O2SAT 97
--- NOTE | 2023-05-10 10:32 | W.COLOREPORT ---
Date of service: 05/10/23 Time of Service: 10:32 Colonoscopy Report Procedure Description: PROCEDURES PERFORMED: 1. Colonoscopy PREOPERATIVE DIAGNOSIS: Recurrent tubulovillous adenoma, sigmoid diverticulosis POSTOPERATIVE DIAGNOSIS: Sigmoid diverticulosis, grade 1 internal hemorrhoids SURGEON: Shailesh Bajwa MD INDICATION for procedure: 67-year-old man had a large tubulovillous adenoma which was actually recurrent, removed piecemeal from ascending colon 3 to 6 months ago. It was recommended to recheck to ensure no regrowth yet again. FINDINGS: No evidence of polyp recurrence. I actually could not find a distinct tattoo site this time and I suspect this is related to the extensive surface area of the resection and ablation last time. I passed the scope into the terminal ileum which was normal. The appendiceal orifice was normal. The cecum was completely normal and carefully inspected 3 different times. I washed the entire ascending colon completely clean all the way into the proximal transverse colon. I went back and forth between the hepatic flexure and the ileocecal valve 3 separate times. There was no evidence of polyp regrowth anywhere. Minimal/mild sigmoid diverticulosis is again noted. Grade 1 internal hemorrhoids noted. SURVEILLANCE interval/FOLLOW-UP: Repeat in 3 years SPECIMENS: None EBL: Minimal COMPLICATIONS: None QUALITY of prep: Adequate Procedure in detail: The patient gave written consent and was in agreement with the indications, the potential risks as well as the benefits of the procedure. They were taken to the endoscopy suite and laid in the left lateral decubitus position. A timeout was performed and anesthesia was administered which was tolerated well. I started the procedure. Digital rectal and visual examination was performed and grossly within normal limits. A well-lubricated flexible colonoscope was then introduced and passed without any notable difficulty all the way to the cecum identified by the ileocecal valve and the appendiceal orifice. I then intubated the terminal ileum which was completely normal. The scope was then slowly withdrawn with care taken to look over the cecum and ascending colon and hepatic flexure multiple times. No recurrent polyp was found. The scope was then slowly withdrawn all the way out. The patient tolerated the procedure well and was taken to the PACU in hemodynamically stable condition.
[2023-05-10] MEDS: Lactated Ringers 1,000 ML 80 ML IV (10:34)
--- NOTE | 2023-05-10 10:43 | W.ANESPRE ---
General Info Date of Service Date Performed: 05/10/23 Height: 6 ft Weight: 90.9 kg Body Mass Index (BMI): 27.1 Surgical Procedure: Operation Date: 05/10/23 11:35 Proposed Procedure Side Surgeon p Colonoscopy William Bajwa MD Meds Allergies and Home Medications Allergies Allergy/AdvReac Type Severity Reaction Status Date / Time No Known Allergies Allergy Verified 05/10/23 10:18 Home Medication Medication Instructions Recorded multivitamin 1 ea PO DAILY 09/02/12 sildenafil 50 mg tablet (Viagra) 50 mg PO DAILY PRN sexual activity 04/15/22 #7 tabs simvastatin 40 mg tablet (Zocor) 40 mg PO DAILY #90 tab-caps 04/15/22 tamsulosin 0.4 mg capsule (Flomax) 0.4 mg PO QHS #90 caps 04/15/22 polyethylene glycol 3350 17 238 g PO ONCE Colonoscopy Bowel 11/03/22 gram/dose oral powder Prep #238 grams bisacodyl 5 mg tablet,delayed 5 mg PO ONCE Colonoscopy Bowel 04/29/23 release (Dulcolax (bisacodyl)) Prep #4 tabs Current Visit Medications: Current Medications Generic Name Dose Route Start Last Admin Trade Name Freq PRN Reason Stop Dose Admin Ringer's Solution 1,000 mls @ 80 mls/hr 05/10/23 06:00 05/10/23 10:34 IV 06/06/23 23:59 80 mls/hr INFUSION KOSTA Administration IV Miscellaneous Supplies 1 each 05/10/23 06:00 Iv Access IV 06/06/23 23:59 DIRECTED KOSTA Sodium Chloride 0 ml 05/10/23 06:00 Normal Saline Flush 10 Ml Syr IV 06/06/23 23:59 PRN PRN Sodium Chloride 0 ml 05/10/23 06:00 Normal Saline 10 Ml Vial IJ 06/06/23 23:59 DIRECTED PRN Sterile Water 0 ml 05/10/23 06:00 Water,Injection,Sterile 10 Ml Vial IJ 06/06/23 23:59 DIRECTED PRN PFSH Active Problems Active Problems: Problem Status Onset Code Gout M10.9 Edema R60.9 Peroneal tendinitis, right leg M76.71 Posterior tibial tendinitis of right leg M76.821 Villous adenoma of colon ~11/2022 D37.4 Tendinopathy of rotator cuff M67.919 Hyperlipidemia E78.5 Venous stasis dermatitis of left lower extremity I87.2 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 Surgical History Surgical History History of colonoscopy (~11/2022) [place] Colonoscopy - IV Sedation (06/15/16) colo -11/20/2019 Tobacco Smoking/Tobacco Use Status: Never Passive smoking exposure: Yes Second hand exposure: Yes Alcohol Alcohol Intake: current Alcohol intake frequency: holidays/special occasions only Alcohol type: hard liquor Substance Use Substance use: Never Substance use type: does not use Vital Signs and Lab Results Vital Signs Most Recent Vital Signs in EMR: Most Recent Vital Signs Temp Pulse Resp BP Pulse Ox 36.3 C L 71 18 123/78 97 05/10/23 10:15 05/10/23 10:15 05/10/23 10:15 05/10/23 10:15 05/10/23 10:15 Lab Results Blood Type / Crossmatch: No Data to Display Complete Blood Count: No Data to Display Complete Metabolic Panel: No Data to Display Liver Function Panel: No Data to Display Coagulation Panel: No Data to Display Cardiac Panel: No Data to Display Arterial Blood Gas: No Data to Display Venous Blood Gas: No Data to Display Pancreas Panel: No Data to Display Thyroid Panel: No Data to Display Infectious Disease: No Data to Display Blood Cultures: No Data to Display Toxicology Panel: No Data to Display Anesthesia Assessment and Plan Anesthesia History Personal History: No History of Anesthesia Complications Family History: No Family History of Anesthesia Complications Exercise Tolerance Exercise Tolerance: Metabolic Equivalents>4 Pertinent Negatives Pertinent Negatives: No Symptoms of GERD Cardiac & Pulmonary Exam Cardiac Exam: Normal S1/S2 Heart Sounds Pulmonary Exam: Clear Bilateral Breath Sounds Implantable Cardiac Device Does patient have a Pacemaker or an ICD?: No Airway Exam Known Difficult Airway: No Mallampati Class: 1 Mouth Opening: Normal (> 3cm) Thyromental Distance: Greater than 3 cm Neck Range of Motion: Full ROM Neck Circumference: Normal Teeth Condition: Normal Dentition ASA Classification ASA Score: ASA 2 Emergency Case?: No NPO Status NPO Status: NPO Clears >2 hours, Solids >8 hours Anesthesia Plan Resuscitation Status: Full Code Anesthesia Technique: General Anesthesia Airway Planned: Natural Airway Monitors Used: Standard Monitors Preoperative Comments:: Reviewed last anes record. Secretions suctioned. Post pt reports sore throat x2 days.
[2023-05-10 11:10] VITALS: BMI 27.1
--- NOTE | 2023-05-10 11:10 | W.PM.DSUDISC ---
Date of service: 05/10/23 Time of Service: 11:10 Discharge Plan Disposition Patient Disposition: Home Condition: Good Discharge Details Attending Provider: William Bajwa Primary Care Provider: Betty Yeager Home Meds and New Rx's Prescriptions: No Action polyethylene glycol 3350 17 gram/dose powder 238 g PO ONCE Qty: 238 0RF Rx Instructions: Colonoscopy Bowel Prep- Per Instructions bisacodyl [Dulcolax (bisacodyl)] 5 mg tablet,delayed release (DR/EC) 5 mg PO ONCE Qty: 4 0RF Rx Instructions: Colonoscopy Bowel Prep- Per Instructions multivitamin 1 EACH tablet 1 ea PO DAILY sildenafil [Viagra] 50 mg tablet 50 mg PO DAILY PRN (Reason: sexual activity) Qty: 7 5RF Rx Instructions: administer 1 hour before activity. Use 1/2 to 1 tablet. simvastatin [Zocor] 40 mg tablet 40 mg PO DAILY Qty: 90 4RF tamsulosin [Flomax] 0.4 mg capsule 0.4 mg PO QHS Qty: 90 3RF Discharge Instructions Additional Instructions: FINDINGS: No evidence of regrowth of the polyp. This is good news. Nothing more needs to be removed or destroyed at this time. There is still a small chance that this polyp will grow back but at this point, now 6 months later without evidence of it, that chance is very low. You should repeat another colonoscopy in 3 years. Stand Alone Forms: Colonoscopy Post Instructions Activity:: Activity as Tolerated Diet:: As Tolerated
[2023-05-10 11:53] VITALS: BP 123/78; PULSE 71; RESP 18; TEMP 36.3; O2SAT 97
[2023-05-10 12:07] VITALS: BP 113/79; PULSE 79; RESP 18
--- NOTE | 2023-05-10 12:11 | W.ANESPOSTOP ---
Postoperative Evaluation Date, Time and Location Date Performed: 05/10/23 Time Performed: 12:11 Patient Location: Day Surgery Unit Vital Signs Most Recent Imported Vital Signs: Most Recent Vital Signs Temp Pulse Resp BP Pulse Ox 36.3 C L 79 18 113/79 97 05/10/23 11:53 05/10/23 12:07 05/10/23 12:07 05/10/23 12:07 05/10/23 11:53 Pain Score Most Recent Pain Score: Most Recent Pain Score Pain Level 0 05/10/23 12:07 Assessment Mental Status: Awake (Alert & Oriented to Patient Baseline) Airway and Respiratory Function: Patent airway with normal (patient baseline) respiratory exam Cardiovascular Function: Hemodynamically Stable Hydration Status: Adequately Hydrated Nausea & Vomiting: No Nausea or Vomiting Pain: Pt. Denies Any Pain Peripheral Nerve Block: Patient did not receive a nerve block
== END 2023-05-10 12:27 | disposition home or self-care (01) ==
PROVIDERS: PCP Family Medicine; Visit Provider Student in an Organized Health Care Education/Training Program
PROC: 0DJD8ZZ Inspection of Lower Intestinal Tract, Via Natural or Artificial Opening Endoscopic (ICD-10-PCS; CPT 45378; principal; 2023-05-10 11:30)
DX: Z12.11 Encounter for screening for malignant neoplasm of colon (principal); K57.30 Diverticulosis of large intestine without perforation or abscess without bleeding; K64.0 First degree hemorrhoids; Z86.010 Personal history of colon polyps; Z80.0 Family history of malignant neoplasm of digestive organs
CPT/HCPCS: G0105; 00123; J2001; J2704

== ENCOUNTER 2023-07-14 09:49 | Outpatient (CLI) | payer MEDICARE, SELFPAY ==
[2023-07-14 12:57] LABS: Anion Gap 4.3 mmol/L (3-11); BUN 19 mg/dL (7-18); CO2 26.7 mmol/L (21.0-32.0); CREATININE 0.9 mg/dL (0.70-1.30); Calcium 9.2 mg/dL (8.5-10.1); Calculated LDL 103 mg/dL (<100); Chloride 106 mmol/L (98-107); Cholesterol 174 mg/dL (<200); Estimated GFR 93.03 (mL/min/1.73m2); Glucose 104 mg/dL (74-106); HDL Cholesterol 50 mg/dL (40-60); Potassium 4.2 mmol/L (3.5-5.1); Sodium 137 mmol/L (136-145); Triglyceride 107 mg/dL (<150)
== END 2023-07-14 09:50 | disposition home or self-care (01) ==
LOC: LOS 09:49
PROVIDERS: PCP Family Medicine; Referring Provider Family Medicine; Visit Provider Family Medicine
DX: Z13.6 Encounter for screening for cardiovascular disorders (principal); E78.2 Mixed hyperlipidemia; I10 Essential (primary) hypertension
CPT/HCPCS: 36415; 80048; 80061

== ENCOUNTER → 2023-08-25 15:00 | Outpatient (BNVA) | payer MEDICARE, SELFPAY | PROVIDERS: PCP Family Medicine; Referring Provider Family Medicine; Visit Provider Podiatrist | DX: M79.675 Pain in left toe(s) (principal); M10.072 Idiopathic gout, left ankle and foot | CPT/HCPCS: 20600; J0702; J1100 ==

== ENCOUNTER 2023-09-01 03:56 | Outpatient (CLI) | payer MEDICARE, SELFPAY ==
--- OUTSIDE RECORDS SUMMARY | 2023-09-01 03:58 | XMS_ITS | Encounter Summary ---
Author Organization [facility] Address [address] [place] [address] Care Team Providers Care Wave Solder Offbearer Name Role Phone Kevin, Roldan Zuleima Primary Care Provider [phone] Encounter Details Date Type Department Care Team (Late st Contact Info) Description 12/03/2022 Lab Requisition [facility] Pathology & Laboratory Medicine - [facility] [address] [place] [address] William Bajwa MD [address] [place] [id number] Benign neoplasm, unspecified site Social History Tobacco Use Types Packs/Day Years Used Date Smoking Tobacco: Never Assessed Interpersonal Safety Answer Date Record ed Physically Hurt Never 12/10/2019 Verbally Threaten Not on file 12/10/2019 Sex and Gender Information Value Date Recorded Sex Assigned at Not on file Gender Identity Not on file Sexual Orientation Not on file documented as of this encounter Plan of Treatment Not on file documented as of this encounter Procedures Procedure Name Priority Date/Time Associated Diagnosis Comments SURGICAL PATHOLOGY Today 12/03/2022 8: 00 EDT Benign neoplasm, unspecified site documented in this encounter Results * SURGICAL PATHOLOGY (12/03/2022 8:00 EDT) Note to Patient The following pathology results have been interpreted by your pathologist and may be available to you before your health provider has had the opportunity to review them. Please allow time for your provider to receive these results and explore management options, if applicable. 12/07/2022 10:02 [facility] Final Diagnosis A. COLON, ASCENDING, POLYP, BIOPSY: - Tubulovillous adenoma. 12/07/2022 10:02 [facility] Attestation There was significant resident/fellow involvement in the diagnostic evaluation of this case. By the signature below, the attending physician certifies that they have personally conducted a gross and/or microscopic examination of the described specimens and rendered or confirmed the above diagnosis. 12/07/2022 10:02 [facility] at 1002 Clinical History Hx of colon polyps 12/07/2022 10:02 [facility] Gross Description A. Received in formalin labelled with proper patient identification (initials Z, H) and ascending colon polyp are 3 huitron-pink tissues ranging in size from 0.3 x 0.1 x 0.1 cm up to 0.7 x 0.5 x 0.3 cm. Submitted intact in A1-A2. LUCIAN BAUTISTA(ASCP) 12/03/2022 19:43 12/07/2022 10:02 [facility] Resident/Sergey w: Pop Burgess [facility] 12/07/2022 10:02 [facility] Performing Lab [facility] 12/07/2022 10:02 [facility] Scanned Images 12/07/2022 10:02 [facility] Tissue ASCENDING COLON STRUCTURE / Unknown 12/03/2022 8:00 EDT 12/03/2022 17:15 EDT William Bajwa MD PATHOLOGY ORDERABLES [facility] [address] [place] [address] documented in this encounter Visit Diagnoses Diagnosis Benign neoplasm, unspecified site documented in this encounter Care Teams Wave Solder Offbearer Relationship Specialty Start Date End Date Roldan Brown DO [address] [place] [address] PCP - General 06/18/16 documented as of this encounter
--- OUTSIDE RECORDS SUMMARY | 2023-09-01 03:58 | XMS_ITS | Encounter Summary ---
Author Organization [facility] Address [address] [place] [address] Care Team Providers Care Rural Health Consultant Name Role Phone Roldan Brown DO Primary Care Provider +1- [phone] Encounter Details Date Type Department Care Team (Late st Contact Info) Description 03/20/2022 Lab Requisition [facility] Pathology & Laboratory Medicine - [facility] [address] [place] [address] Outr Resulting Lab, Provider Social History Tobacco Use Types Packs/Day Years [...] Procedure Name Priority Date/Time Associated Diagnosis Comments HEPATITIS C AB W REFLEX TO HCV RNA BY PCR Routine 03/20/2022 7:29 EST PSA TOTAL, DIAGNOSTIC Routine 03/20/2022 7:29 EST documented in this encounter Results * PSA TOTAL, DIAGNOSTIC (03/20/2022 7:29 EST) PSA 1.5 <=4.5 ng/mL 03/20/2022 20:10 EST [facility] Blood VENOUS BLOOD / Unknown 03/20/2022 7:29 EST 03/20/2022 19:21 EST Narrative [facility] - 03/20/2022 20:10 EST NOTE: Serum PSA concentration should not be interpreted as absolute evidence for the presence or absence of malignant disease. Assayed on Siemens ADVIA Centaur XPT using chemiluminescent technology.??Values obtained by using different assay methods cannot be used interchangeably. Provider Outr Resulting Lab CHEMISTRY & BLOOD GAS ORDERABLES Performing Organization Address City/[facility]/ZIP Co de Phone Number [facility] [address] [place] [address] * HEPATITIS C AB W REFLEX TO HCV RNA BY PCR (03/20/2022 7:29 EST) Hep C Antibody Negative Negative 03/23/2022 10:36 EST [facility] Blood VENOUS BLOOD / Unknown 03/20/2022 7:29 EST 03/20/2022 19:21 EST Provider Outr Resulting Lab CHEMISTRY & BLOOD GAS ORDERABLES Performing Organization Address City/[facility] Co de Phone Number [facility] [address] [place] [address] documented in this encounter Visit Diagnoses Not on filedocumented in this encounter Care Teams Rural Health Consultant Relationship Specialty Start Date End Date Roldan Brown DO [address] [place] [address] PCP - General 06/18/16 documented as of this encounter
--- OUTSIDE RECORDS SUMMARY | 2023-09-01 03:58 | XMS_ITS | Clinical Summary ---
Author Organization [facility] Address [address] [place] [address] Care Team Providers Care Welder Assistant Name Role Phone Roldan Brown DO Primary Care Provider +1- [phone] Social History Tobacco Use Types Packs/Day Years Used Date Smoking Tobacco: Never Assessed Interpersonal Safety Answer Date Record ed Physically Hurt Never 12/10/2019 Verbally Threaten Not on file 12/10/2019 Sex and Gender Information Value Date Recorded Sex Assigned at Not on file Gender Identity Not on file Sexual Orientation Not on file Plan of Treatment Health Maintenance Due Date Last Done Comments RSV Immunization ( o r 60+ Years) (1 - 1-dose 60+ series) 2014 Fall Risk Screening 07/29/2019 COVID-19 Vaccine (2022- season) 2022 Hepatitis C Screen Completed 03/20/2022 Procedures Procedure Name Priority Date/Time Associated Diagnosis Comments HEPATITIS C AB W REFLEX TO HCV RNA BY PCR Routine 03/20/2022 7:29 EST from Last 3 Months or Most Recently Relevant to Health Maintenance Results * HEPATITIS C AB W REFLEX TO HCV RNA BY PCR (03/20/2022 7:29 EST) Hep C Antibody Negative Negative 03/23/2022 10:36 EST [facility] Blood VENOUS BLOOD / Unknown 03/20/2022 7:29 EST 03/20/2022 19:21 EST Provider Outr Resulting Lab CHEMISTRY & BLOOD GAS ORDERABLES [facility] [address] [place] [address] from Last 3 Months or Most Recently Relevant to Health Maintenance Care Teams Welder Assistant Relationship Specialty Start Date End Date Roldan Brown DO [address] [place] [address] PCP - General 06/18/16
--- OUTSIDE RECORDS SUMMARY | 2023-09-01 03:58 | XMS_ITS | Encounter Summary ---
Author Organization [facility] Address [address] [place] [address] Care Team Providers Care Manager Program Management Name Role Phone Unknown, Provider Primary Care Provider Encounter Details Date Type Department Care Team (Late st Contact Info) Description 06/15/2016 Results Only [facility]- [facility] [phone] Magi Navarro MD [facility] [place], [place] [id number] Social History Tobacco Use Types Packs/Day Years Used Date Smoking Tobacco: Never Assessed Sex and Gender Information Value Date Recorded Sex Assigned at Not on file Gender Identity Not on file Sexual Orientation Not on file documented as of this encounter Plan of Treatment Not on file documented as of this encounter Procedures Procedure Name Priority Date/Time Associated Diagnosis Comments SURGICAL PATHOLOGY Routine 06/15/2016 15 :41 EDT documented in this encounter Results * SURGICAL PATHOLOGY (06/15/2016 15:41 EDT) Pathology Report: SURGICAL PATHOLOGY REPORT Reports generated via electronic interface contain original data; however they are lacking the format of the original report. Caution should be taken when reading/interpret ing unformatted reports. Name: ? ENRRIQUE ALVARADO JR ? Accession #: ? [id number] ? : ? 1955 (Age: 60) ??M ? Collect Date: ? 06/15/2016 ? Location: ? [facility] ? Receive Date: ? 06/15/2016 ? Provider: MAGI NAVARRO MD Copy to: DANY LOPEZ DO ? Final Pathologic Diagnosis: COLON, ASCENDING, POLYP, BIOPSY: - Fragments of tubulovillous adenoma. Document reviewed and electronically signed by: FRANCESCA SMILEY MD Report ??Date: 06/22/2016 11:12 By the signature above, the attending physician certifies that he/she has personally conducted a gross and/or microscopic examination of the described specimens and rendered or confirmed the above diagnosis. Specimen(s) Received: Ascending colon polyp Clinical History: Family hx colon cancer Gross Description: ? Received in formalin labelled with proper patient identification (initials Z, H) and ascending colon polyp are two irregular soft tissues averaging 0.3 x 0.2 x 0.1 cm. Entirely submitted in 1. LUCIAN Fields (ASCP) 06/15/2016 3:59 PM End of Report [facility] 06/15/2016 15:4 1 EDT 06/15/2016 15:41 EDT Magi Navarro MD PATHOLOGY ORDERA BLES [facility] [address] [place] [address] documented in this encounter Visit Diagnoses Not on filedocumented in this encounter Care Teams Manager Program Management Relationship Specialty Start Date End Date Unknown, Provider, PCP - General 06/15/16 06/17/16 documented as of this encounter
--- OUTSIDE RECORDS SUMMARY | 2023-09-01 03:58 | XMS_ITS | Referral Summary ---
Author Organization [facility] Address [address] [place] [address] Care Team Providers Care Lease Purchase Driver Name Role Phone Roldan Brown DO Primary Care Provider +1- [phone] Social History Tobacco Use Types Packs/Day Years Used Date Smoking Tobacco: Never Assessed Interpersonal Safety Answer Date Record ed Physically Hurt Never 12/10/2019 Verbally Threaten Not on file 12/10/2019 Sex and Gender Information Value Date Recorded Sex Assigned at Not on file Gender Identity Not on file Sexual Orientation Not on file Plan of Treatment Not on file Procedures Procedure Name Priority Date/Time Associated Diagnosis Comments HEPATITIS C AB W REFLEX TO HCV RNA BY PCR Routine 03/20/2022 7:29 EST from Last 3 Months or Most Recently Relevant to Health Maintenance Results * HEPATITIS C AB W REFLEX TO HCV RNA BY PCR (03/20/2022 7:29 EST) Hep C Antibody Negative Negative 03/23/2022 10:[address] [facility] Blood VENOUS BLOOD / Unknown 03/20/2022 7:29 EST 03/20/2022 19:21 EST Provider Outr Resulting Lab CHEMISTRY & BLOOD GAS ORDERABLES [facility] [address] [place] [address] from Last 3 Months or Most Recently Relevant to Health Maintenance Care Teams Lease Purchase Driver Relationship Specialty Start Date End Date Roldan Brown DO [address] [place] [address] PCP - General 06/18/16
--- OUTSIDE RECORDS SUMMARY | 2023-09-01 03:58 | XMS_ITS | Encounter Summary ---
Author Organization [facility] Address [address] [place] [address] Care Team Providers Care Mobility Scooter Repairer Name Role Phone Unknown, Provider Primary Care Provider Encounter Details Date Type Department Care Team (Latest Contact Info) Description 06/15/2016 15:39 EDT - 06/15/2016 23:59 EDT Hospital Encounter [address] [address] Unknown, Provider, Discharge Disposition: Home or Self Care Social History Tobacco Use Types Packs/Day Years Used Date Smoking Tobacco: Never Assessed Sex and Gender Information Value Date Recorded Sex Assigned at Not on file Gender Identity Not on file Sexual Orientation Not on file documented as of this encounter Discharge Disposition Disposition Code Departure Means Destination Home or Self Snf documented in this encounter Plan of Treatment Not on file documented as of this encounter Visit Diagnoses Not on filedocumented in this encounter Care Teams Mobility Scooter Repairer Relationship Specialty Start Date End Date Unknown, Provider, PCP - General 06/15/16 06/17/16 documented as of this encounter
--- OUTSIDE RECORDS SUMMARY | 2023-09-01 03:58 | XMS_ITS | Encounter Summary ---
Author Organization [facility] Address [address] [place] [address] Care Team Providers Care Ict Systems Test Engineer Name Role Phone Kevin, Roldan Zuleima Primary Care Provider +1- [phone] Encounter Details Date Type Department Care Team (Late st Contact Info) Description 11/20/2019 Lab Requisition [facility] Pathology & Laboratory Medicine - [facility] [address] [place] [address] Bijan Leonard MD [address] [phone] Encounter for other general examination Social History Tobacco Use Types Packs/Day Years Used Date Smoking Tobacco: Never Assessed Sex and Gender Information Value Date Recorded Sex Assigned at Not on file Gender Identity Not on file Sexual Orientation Not on file documented as of this encounter Plan of Treatment Not on file documented as of this encounter Procedures Procedure Name Priority Date/Time Associated Diagnosis Comments SURGICAL PATHOLOGY Today 11/20/2019 7 :45 EDT Encounter for other general examination documented in this encounter Results * SURGICAL PATHOLOGY (11/20/2019 7:45 EDT) Final Diagnosis A. COLON, ASCENDING, POLYP, BIOPSY: - Fragments of tubulovillous adenoma. 11/22/2019 15:21 EDT [facility] Attestation By the signature below, the attending physician certifies that they have 1) personally conducted a gross and/or microscopic examination of the described specimen(s), and/or personally interpreted the results of laboratory testing of the described specimen(s), and 2) personally rendered or confirmed the above diagnosis. 11/22/2019 15:21 EDT [facility] at 1521 Clinical History History of polyps 11/22/2019 15:21 EDT [facility] Gross Description A. Received in formalin labelled with proper patient identification (initials Z, H) and ascending colon polyp are multiple fragments of huitron soft tissue (1.2 x 1.2 x 0.4 cm in aggregate). The specimen is entirely submitted in A1-A2. LUCIAN ZULUAGA(ASCP) 11/20/2019 16:15 11/22/2019 15:21 EDT [facility] Performing Lab [facility] 11/22/2019 15:21 EDT [facility] Scanned Images 11/22/2019 15:21 EDT [facility] Tissue POLYP OF COLON / Unknown 11/20/2019 7:45 EDT 11/20/2019 15:57 EDT Bijan Leonard MD PATHOLOGY ORDERA BLES [facility] [address] [place] [address] documented in this encounter Visit Diagnoses Diagnosis Encounter for other general examination documented in this encounter Care Teams Ict Systems Test Engineer Relationship Specialty Start Date End Date Roldan Brown DO [address] [place] [address] PCP - General 06/18/16 documented as of this encounter
--- OUTSIDE RECORDS SUMMARY | 2023-09-01 03:58 | XMS_ITS | Continuity of Care Document ---
Author Organization [facility] Address [address] [place] [address] Care Team Providers Care Dental Officer Name Role Phone DR. DARIANA HOLLAND Primary Care Physicia n Encounter [facility] NBR [id number] Date(s): 09/18/22 - 09/18/22 [facility] [address] [place], [place] [address] Encounter Diagnosis Impingement of right shoulder(Discharge Diagnosis) - 09/18/22 Discharge Disposition: Home or Self Care Attending Physician: Nicki Massey APRN, Referring Physician: DR. DARIANA HOLLAND Medications celecoxib 100 mg oral capsule 100 mg = 1 cap, Oral, BID, PRN as needed for pain, # 60 cap, 1 Refill(s), Pharmacy: [id number] Start Date: 09/18/22 Status: Ordered simvastatin 20 mg oral tablet 20 mg = 1 tab, Oral, every evening, # 30 tab, 0 Refill(s) Start Date: 09/18/22 Status: Ordered Vital Signs Most recent to oldest [Reference Range]: 1 Peripheral Pulse Rate [60-100 bpm] 70 bp m (09/18/22 8:18 AM) Blood Pressure [90-140/60-90 mmHg] 130/6 8mmHg (09/18/22 8:18 AM) Weight 92.99 kg (09/18/22 8:18 AM) Weight Measured (lbs) 205.008 lb (09/18/22 8:18 AM) Height 180.34 cm (09/18/22 8:18 AM) Height/Length Measured (inches) 71 inch (09/18/22 8:18 AM) BSA Measured 2.16 m2 (09/18/22 8:18 AM) Body Mass Index 28.59 kg/m2 (09/18/22 8:18 AM) Hospital Discharge Instructions Follow Up Care 08/20/2022 11:50:11 With:Return to this practice Address: When: only if needed Physician Outpatient Note * Nicki Massey BIBLIOGRAPHIC SERVICES SPECIALIST,: PERFORM Event Display: Office Clinic Note Physician Authored Date: [id number] ENRRIQUE ALVARADO JR :1955 Age:67 years Sex:Male Visit Date:09/18/2022 Primary Care Physician: DR. DARIANA HOLLAND Chief Complaint left shoulder pain History of Present Illness Herb is a very pleasant 67-year-old man who is kindly referred to the practice for evaluation of left shoulder pain. ??He slipped and fell on ice??this past winter.?? X-rays have been unrevealing. ??He describes pain at the shoulder that radiates into the arm. ??He describes it as a nagging, constant ache. ??It is worse with overhead use and reaching out to the side. ??It is very painful at night, for the first several months he slept in a recliner. ??In terms of treatment he has used Tylenol, ibuprofen, ice, topical pain relievers. ??He has been to several sessions of physical therapy, but has not improved. ??He feels that he has plateaued since the injury. ??He is right-hand dominant. ??Works part-time in sales at [employer].? Review of Systems Constitutional:?No??fevers,?No??chills,?No??sweats Respiratory:?No??shortness of breath,?No??cough Cardiovascular:?No??Chest pain,?No??palpitations,?No??syncope Gastrointestinal:?Nonausea,?No??vomiting,?No??diarrhea Musculoskeletal:??No??back pain,??No??neck pain,??Positive for??left shoulder pain,??No??muscle pain,??Positive for??decreased range of motion left shoulder Integumentary:?No??rash,?No??pruritus,?No??abrasions Neurologic: Alert & oriented X 4 Psychiatric:?No??anxiety,?No??depression Physical Exam Vitals & Measurements HR:??70??(Peripheral)?? BP:??130/68?? SpO2:??99%?? HT:??180.34??cm?? WT:??92.99??kg?? BMI:??28.59?? BSA:??2.16?? The patient is alert and oriented x3. ??Pleasant and cooperative. ??Well-dressed and well-groomed.?? Appears stated age and is well-nourished and well- developed.?? Examination of the left shoulder iswithout deformity. ??Skin is intact. ??There is no erythema or warmth. ??No signs or symptoms of infection.?? No point tenderness at the AC joint. ??No point tenderness at the subacromial space,??supraspinatus insertion. ??There is mild point tenderness at the subscap insertion and long head of thebiceps tendon.?? Active forward flexion is to 160 degrees. ??Extension is full. ??Internal rotationis limited thumb to??L2.?? Lift off is with??4/5 strength compared to the right.?? No pain with liftoff.?? Abduction is to 160 degrees.?? External rotation is guarded,??mildly limited. ??Cross arm iswithout difficulty. ??Empty can testing is with mild discomfort, 4/5 strength compared to the right.?? External rotation strength is 4/5??compared to the right.?? Impingement signs are mildly positive. ??Speed's Test is negative. ??Arm and forearm compartments are soft and nontender. ??The left upper extremity is neurovascularly intact distally. Procedure Risks, benefits and alternatives to this injection are discussed with the patient, verbal consent is obtained. ??Under standard, sterile technique, the??posterior subacromial??injection site of the??left??shoulder is meticulously prepped with alcohol x3. ??Then 40 mg of Kenalog combined with 1% lidocaine plain??is injected without difficulty. ??The patient tolerated the injection very well and a dry, sterile bandage is applied. ??Postinjection instructions are provided. Assessment/Plan 1.??Impingement of right shoulder??M25.811 Enrrique is a pleasant 67-year-old man who has been struggling with left shoulder pain??since a fall6 months ago.?? Fortunately I do not feel he has a full- thickness rotator cuff tear, he is reassured of this.?? Overall he has relatively well-preserved range of motion and strength.?? However he hasnot improved with conservative treatment as outlined above. ??He is not quite ready to consider surgery. ??Therefore we discussed trying a cortisone injection for pain relief. ??He is in agreement with that plan and I am happy to do this for him today.?? Once the shoulder feels better he will get back into physical therapy and his home exercise program. ??If he does not improve with the injectionand therapy, he will let me know and we may consider MRI??at that point in time. ??He may continue with all supportive care. ??We are also going to try Celebrex, he understands this takes the place of any other anti-inflammatory. ??He is provided with patient dictation materials.?? I will see him back on an as-needed basis and he is encouraged to contact me with questions or concerns at any time.??I spent 30 minutes in reviewing the record, seeing the patient and documenting in the medical record. Ordered: celecoxib 100 mg oral capsule, 100 mg = 1 cap, Oral, BID, PRN as needed for pain, # 60 cap, 1 Refill(s), Pharmacy: [id number] Kenalog-40, 40 mg, Intra-articular, Once, First Dose: 09/18/22 9:05:00 EDT, Stop Date: 09/18/22 9:05:00 EDT, Physician Stop, Routine ?? Follow Up Instructions With When Contact Information Return to this practice Only if needed Additional Instructions: Problem List/Past Medical History Ongoing No qualifying data Historical No qualifying data Medications celecoxib 100 mg oral capsule, 100 mg= 1 cap, Oral, BID, PRN, 1 refills Kenalog-40, 40 mg, Intra-articular, Once simvastatin 20 mg oral tablet, 20 mg= 1 tab, Oral, every evening Allergies No active allergies Electronically Signed on 09/18/22 09:13 AM Nicki Massey APRN, Patient Care team information Care Team Personnel Name: DR. DARIANA HOLLAND Position: No Access Member Role: Primary Care Physician Address: Address: [address] [place] [address], [place] [address]- Care Team Related Persons Name: JUAN PICKARD Address: Home [address]
[2023-09-01 10:56] LABS: Abs Immature Grans 0.02 10^3/uL (0.0-0.06); Absolute Basophil Count 0.04 10^3/uL (0.0-0.2); Absolute Eosinophil Count 0.07 10^3/uL (0.0-0.7); Absolute Lymphocyte Count 0.67 10^3/uL (1.2-3.4); Absolute Monocyte Count 0.59 10^3/uL (0.1-0.8); Absolute Neutrophil Count 3.35 10^3/uL (1.2-6.7); Basophils % 0.8 %; Eosinophils % 1.5 %; HCT 40.9 % (40.0-50.0); Immature Grans % 0.4 %; Lymphocytes % 14.1 %; MCH 28.4 pg (27.0-33.0); MCHC 31.8 % (32.0-36.0); MCV 89 fL (80-95); MPV 10.7 fL (8.0-11.0); Monocytes % 12.4 %; Neutrophils % 70.8 %; Platelet Count 186 10^3/uL (130-400); RBC 4.58 10^6/uL (4.36-5.78); RDW 15.4 % (11.8-14.1); WBC 4.74 10^3/uL (4.4-10.8)
[2023-09-01 11:07] LABS: Uric Acid 6.2 mg/dL (3.5-7.2)
== END 2023-09-01 03:57 | disposition home or self-care (01) ==
LOC: LBO 03:56
PROVIDERS: Podiatrist; PCP Family Medicine; Visit Provider Family Medicine
DX: M10.9 Gout, unspecified (principal); E79.0 Hyperuricemia without signs of inflammatory arthritis and tophaceous disease
CPT/HCPCS: 36415; 84550; 85025

== ENCOUNTER → 2023-09-22 12:56 | Outpatient (BNVA) | payer MEDICARE, SELFPAY | PROVIDERS: PCP Family Medicine; Referring Provider Family Medicine; Visit Provider Podiatrist | DX: M10.072 Idiopathic gout, left ankle and foot (principal); G89.29 Other chronic pain; M21.612 Bunion of left foot; M25.572 Pain in left ankle and joints of left foot | CPT/HCPCS: 20600; J0702; J1100 ==

== ENCOUNTER → 2023-09-22 17:30 | Outpatient (CLI) | payer MEDICARE, SELFPAY ==
--- NOTE | 2023-09-22 13:15 | DI.RAD_ITS ---
Exam(s) XR FOOT LT COMPLETE EXAM: XR FOOT LT COMPLETE CLINICAL HISTORY: pain in left foot, lt foot bunion, M21.612. TECHNIQUE: 2D digital imaging was performed. Three views. COMPARISON: CR XR FOOT RT COMPLETE from 04/21/2023 FINDINGS: BONES: No acute fracture is present. No bony destructive lesion is seen. JOINTS: No dislocation present. Hammertoe deformities. Plantar arch is maintained. Mild degenerat andrew changes. There is an ossicle between but the bases of the 1st and 2nd metatarsals. SOFT TISSUE: Swelling medial to 1st MTP joint. There are few small calcifications adjacent to the 1s t metatarsal head. IMPRESSION: Soft tissue swelling and calcifications adjacent to 1st metatarsal head. Mild degenerative changes. DATA REPOSITORY: RADIATION DOSE DELIVERED:
--- OUTSIDE RECORDS SUMMARY | 2023-09-22 17:32 | XMS_ITS | Encounter Summary ---
Author Organization [facility] Address [address] [place] [address] Care Team Providers Care Muck Miner Blasting Name Role Phone Unknown, Provider Primary Care Provider Encounter Details Date Type Department Care Team (Late st Contact Info) Description 06/15/2016 Results Only [facility] [phone] Magi Navarro MD [address] [place] [id number] Social History Tobacco Use Types Packs/Day Years [...] ENRRIQUE ALVARADO JR ? Accession #: ? [id number] ? : ? 1955 (Age: 60) ??M [...] (ASCP) 06/15/2016 3:59 PM End of Report [facility] 06/15/2016 15:4 1 EDT 06/15/2016 15:41 EDT Magi Navarro MD PATHOLOGY ORDERA BLES [facility] [address] [place] [address] documented in this encounter Visit Diagnoses Not on filedocumented in this encounter Care Teams Muck Miner Blasting Relationship Specialty Start Date End Date Unknown, Provider, PCP - General 06/15/16 06/17/16 documented as of this encounter
--- OUTSIDE RECORDS SUMMARY | 2023-09-22 17:32 | XMS_ITS | Clinical Summary ---
Author Organization [facility] Address [address] [place] [address] Care Team Providers Care Sewing Machine Assembler Name Role Phone Roldan Brown DO Primary Care Provider +1- [phone] Social History Tobacco Use Types Packs/Day Years [...] C Antibody Negative Negative 03/23/2022 10:36 EST [facility] Blood VENOUS BLOOD / Unknown 03/20/2022 7:29 EST 03/20/2022 19:21 EST Provider Outr Resulting Lab CHEMISTRY & BLOOD GAS ORDERABLES [facility] [address] [place] [address] from Last 3 Months or Most Recently Relevant to Health Maintenance Care Teams Sewing Machine Assembler Relationship Specialty Start Date End Date Roldan Brown DO [address] [place] [address] PCP - General 06/18/16
--- OUTSIDE RECORDS SUMMARY | 2023-09-22 17:32 | XMS_ITS | Encounter Summary ---
Author Organization [facility] Address [address] [place] [address] Care Team Providers Care Epilepsy Physician Name Role Phone Roldan Brown DO Primary Care Provider +1- [phone] Encounter Details Date Type Department Care Team (Late st Contact Info) Description 03/20/2022 Lab Requisition [facility] Pathology & Laboratory Medicine - [address] [address] Outr Resulting Lab, Provider Social History Tobacco [...] PSA 1.5 <=4.5 ng/mL 03/20/2022 20:10 EST [facility] Blood VENOUS BLOOD / Unknown 03/20/2022 7:29 EST 03/20/2022 19:21 EST Narrative [facility] - 03/20/2022 20:10 EST NOTE: Serum PSA concentration should not be interpreted as absolute evidence for the presence or absence of malignant disease. Assayed on Siemens ADVIA Centaur XPT using chemiluminescent technology.??Values obtained by using different assay methods cannot be used interchangeably. Provider Outr Resulting Lab CHEMISTRY & BLOOD GAS ORDERABLES Performing Organization Address City/[facility]/ZIP Co de Phone Number [facility] [address] [place] [address] * HEPATITIS C AB W REFLEX TO HCV RNA BY PCR (03/20/2022 7:29 EST) Hep C Antibody Negative Negative 03/23/2022 10:36 EST [facility] Blood VENOUS BLOOD / Unknown 03/20/2022 7:29 EST 03/20/2022 19:21 EST Provider Outr Resulting Lab CHEMISTRY & BLOOD GAS ORDERABLES Performing Organization Address City/[facility] Co de Phone Number [facility] [address] [place] [address] documented in this encounter Visit Diagnoses Not on filedocumented in this encounter Care Teams Epilepsy Physician Relationship Specialty Start Date End Date Roldan Brown DO [address] [place] [address] PCP - General 06/18/16 documented as of this encounter
--- OUTSIDE RECORDS SUMMARY | 2023-09-22 17:32 | XMS_ITS | Referral Summary ---
Author Organization [facility] Address [address] [place] [address] Care Team Providers Care Retail Loss Prevention Officer Name Role Phone Roldan Brown DO Primary Care Provider +1- [phone] Social History Tobacco Use Types Packs/Day Years [...] C Antibody Negative Negative 03/23/2022 10:36 EST [facility] Blood VENOUS BLOOD / Unknown 03/20/2022 7:29 EST 03/20/2022 19:21 EST Provider Outr Resulting Lab CHEMISTRY & BLOOD GAS ORDERABLES [facility] [address] [place] [address] from Last 3 Months or Most Recently Relevant to Health Maintenance Care Teams Retail Loss Prevention Officer Relationship Specialty Start Date End Date Roldan Brown DO [address] [place] [address] PCP - General 06/18/16
--- OUTSIDE RECORDS SUMMARY | 2023-09-22 17:32 | XMS_ITS | Encounter Summary ---
Author Organization [facility] Address [address] [place] [address] Care Team Providers Care Cement Fittings Maker Name Role Phone Kevin, Roldan Zuleima Primary Care Provider +1- [phone] Encounter Details Date Type Department Care Team (Late st Contact Info) Description 12/03/2022 Lab Requisition [facility] Pathology & Laboratory Medicine - [facility] [address] [place] [address] William Bajwa MD [address] [place] [phone] Benign neoplasm, unspecified site Social History Tobacco [...] explore management options, if applicable. 12/07/2022 10:02 [facility] Final Diagnosis A. COLON, ASCENDING, POLYP, BIOPSY: - Tubulovillous adenoma. 12/07/2022 10:02 [facility] Attestation There was significant resident/fellow involvement in the diagnostic evaluation of this case. By the signature below, the attending physician certifies that they have personally conducted a gross and/or microscopic examination of the described specimens and rendered or confirmed the above diagnosis. 12/07/2022 10:02 [facility] at 1002 Clinical History Hx of colon polyps 12/07/2022 10:02 [facility] Gross Description A. Received in formalin labelled with proper patient identification (initials Z, H) and ascending colon polyp are 3 huitron-pink tissues ranging in size from 0.3 x 0.1 x 0.1 cm up to 0.7 x 0.5 x 0.3 cm. Submitted intact in A1-A2. LUCIAN BAUTISTA(ASCP) 12/03/2022 19:43 12/07/2022 10:02 [facility] Resident/Sergey w: Pop Burgess MB [facility] 12/07/2022 10:02 [facility] Performing Lab [facility] 12/07/2022 10:02 [facility] Scanned Images 12/07/2022 10:02 [facility] Tissue ASCENDING COLON STRUCTURE / Unknown 12/03/2022 8:00 EDT 12/03/2022 17:15 EDT William Bajwa MD PATHOLOGY ORDERABLES [facility] [address] [place] [address] documented in this encounter Visit Diagnoses Diagnosis Benign neoplasm, unspecified site documented in this encounter Care Teams Cement Fittings Maker Relationship Specialty Start Date End Date Roldan Brown DO [address] [place] [address] PCP - General 06/18/16 documented as of this encounter
--- OUTSIDE RECORDS SUMMARY | 2023-09-22 17:32 | XMS_ITS | Encounter Summary ---
Author Organization [facility] Address [address] [place] [address] Care Team Providers Care Restaurant Front Manager Name Role Phone Kevin, Roldan Zuleima Primary Care Provider +1- [phone] Encounter Details Date Type Department Care Team (Late st Contact Info) Description 11/20/2019 Lab Requisition [facility] Pathology & Laboratory Medicine - [facility] [address] [place] [address] Bijan Leonard MD [address] [place] [phone] Encounter for other general examination Social History [...] Fragments of tubulovillous adenoma. 11/22/2019 15:21 EDT [facility] Attestation By the signature below, the attending physician certifies that they have 1) personally conducted a gross and/or microscopic examination of the described specimen(s), and/or personally interpreted the results of laboratory testing of the described specimen(s), and 2) personally rendered or confirmed the above diagnosis. 11/22/2019 15:21 EDT [facility] at 1521 Clinical History History of polyps 11/22/2019 15:21 EDT [facility] Gross Description A. Received in formalin labelled with proper patient identification (initials Z, H) and ascending colon polyp are multiple fragments of huitron soft tissue (1.2 x 1.2 x 0.4 cm in aggregate). The specimen is entirely submitted in A1-A2. LUCIAN ZULUAGA(ASCP) 11/20/2019 16:15 11/22/2019 15:21 EDT [facility] Performing Lab [facility] 11/22/2019 15:21 EDT [facility] Scanned Images 11/22/2019 15:21 EDT [facility] Tissue POLYP OF COLON / Unknown 11/20/2019 7:45 EDT 11/20/2019 15:57 EDT Bijan Leonard MD PATHOLOGY ORDERA BLES [facility] [address] [place] [address] documented in this encounter Visit Diagnoses Diagnosis Encounter for other general examination documented in this encounter Care Teams Restaurant Front Manager Relationship Specialty Start Date End Date Roldan Brown DO [address] [place] [address] PCP - General 06/18/16 documented as of this encounter
--- OUTSIDE RECORDS SUMMARY | 2023-09-22 17:32 | XMS_ITS | Encounter Summary ---
Author Organization [facility] Address [address] [place] [address] Care Team Providers Care Chief Operator Hydroformer Name Role Phone Unknown, Provider Primary Care Provider Encounter Details Date Type Department Care Team (Latest Contact Info) Description 06/15/2016 15:39 EDT - 06/15/2016 23:59 EDT Hospital Encounter [address] [address] Unknown, Provider, Discharge Disposition: Home or Self Care Social History Tobacco Use Types Packs/Day Years Used Date Smoking Tobacco: Never Assessed Sex and Gender Information Value Date Recorded Sex Assigned at Not on file Gender Identity Not on file Sexual Orientation Not on file documented as of this encounter Discharge Disposition Disposition Code Departure Means Destination Home or Self Alf documented in this encounter Plan of Treatment Not on file documented as of this encounter Visit Diagnoses Not on filedocumented in this encounter Care Teams Chief Operator Hydroformer Relationship Specialty Start Date End Date Unknown, Provider, PCP - General 06/15/16 06/17/16 documented as of this encounter
== END ==
PROVIDERS: PCP Family Medicine; Visit Provider Podiatrist
DX: M21.612 Bunion of left foot (principal); M19.072 Primary osteoarthritis, left ankle and foot; R22.42 Localized swelling, mass and lump, left lower limb
CPT/HCPCS: 20600; J0702; J1100; 73630

== ENCOUNTER → 2023-10-07 08:04 | Outpatient (BNVA) | payer MEDICARE, SELFPAY | PROVIDERS: PCP Family Medicine; Referring Provider Family Medicine; Visit Provider Podiatrist | DX: M25.572 Pain in left ankle and joints of left foot; M10.9 Gout, unspecified | CPT/HCPCS: 99213 ==

== ENCOUNTER 2024-01-07 02:39 | Outpatient (CLI) | payer MEDICARE, SELFPAY ==
[2024-01-07 12:43] LABS: Anion Gap 8.7 mmol/L (3-11); BUN 19 mg/dL (7-18); CO2 25.3 mmol/L (21.0-32.0); Chloride 105 mmol/L (98-107); Estimated GFR 81.47 (mL/min/1.73m2); Glucose 106 mg/dL (74-106); Potassium 4.6 mmol/L (3.5-5.1); Sodium 139 mmol/L (136-145); Uric Acid 6.2 mg/dL (3.5-7.2)
== END 2024-01-07 02:40 | disposition home or self-care (01) ==
PROVIDERS: PCP Family Medicine; Visit Provider Family Medicine
DX: I10 Essential (primary) hypertension (principal); M21.612 Bunion of left foot; M1A.9XX0 Chronic gout, unspecified, without tophus (tophi)
CPT/HCPCS: 36415; 80048; 84550

== ENCOUNTER 2024-07-19 01:43 | Outpatient (CLI) | payer MEDICARE, SELFPAY ==
--- NOTE | 2024-07-19 06:49 | DI.MAMMO_ITS ---
Exam(s) US BREAST LT COMPLETE MAMMO DIAGNOSTIC BI EXAM: MAMMO DIAGNOSTIC BI and U/S breast LT complete CLINICAL HISTORY: Breast tenderness in a male,n64.4. TECHNIQUE: Craniocaudal and mediolateral oblique Full Field Digital Mammography views with Computer Aided Diagnosis followed by Tomosynthesis and left breast ultrasound. All 4 quadrants of the left br east were evaluated sonographically in addition to the retroareolar region and axilla. COMPARISON: No exams were available for comparison FINDINGS: Mammography/Tomosynthesis: Masses/Architectural Distortion: There is a small amount of breast tissue seen beneath the left nippl e consistent with gynecomastia. No suspicious masses or areas of architectural distortion are presen t. Microcalcifictions: No suspicious pleomorphic-type are seen. Skin Thickening/Nipple Retraction: None. Complete left breast US: Echotexture: There is hypoechoic tissue seen in the retroareolar region of the left breast consistent with gynecomastia. Shadowing: No suspicious foci. Cyst: None. Solid lesions: None seen. Ductal dilation: None. IMPRESSION: 1. No evidence of malignancy is noted. 2. Findings consistent with gynecomastia of the left breast. 3. Unless there is more urgent need, follow-up as clinically indicated, as per [employer] guidelines. 4. The findings were discussed with the patient on the date of the examination. BI-RADS Category 2 - Benign Findings Breast Density - Category A - The breast are almost entirely fatty. Breast density Category C or D implies that the patient has dense breast tissue. Dense breast tissue can make it harder to find cancer on a mammogram. Dense breast tissue is also associated with an incr eased risk of breast cancer. This information about the result of the mammogram report was provided to the patient to raise their awareness. Use this report when you speak with the patient about their risks for breast cancer, which includes their family history. At that time, you may recommend additional screening tests (Ultrasoun d or MRI) as these tests may add significant information. A negative radiographic report should not delay biopsy if a dominant or clinically suspicious mass is present. Up to ten percent of cancers are not identified on mammography. A negative report may reinforce clinical impression. Adenosis and dense breasts may obscure an underlying neoplasm. False positive reports average 6 to 10%. Patient will receive a letter notifying them of these results.
== END 2024-07-19 02:03 ==
PROVIDERS: PCP Family Medicine; Visit Provider Family Medicine
DX: N64.4 Mastodynia (principal); R92.8 Other abnormal and inconclusive findings on diagnostic imaging of breast; Z12.31 Encounter for screening mammogram for malignant neoplasm of breast
CPT/HCPCS: 76642; 77062; 77066; G0279

== ENCOUNTER 2024-10-30 01:47 | Outpatient (CLI) | payer MEDICARE, SELFPAY ==
[2024-10-30 22:59] LABS: PSA, Screening 1.9 ng/mL (<=6.5)
== END 2024-10-30 01:48 | disposition home or self-care (01) ==
PROVIDERS: PCP Family Medicine; Visit Provider Family Medicine
DX: Z12.5 Encounter for screening for malignant neoplasm of prostate (principal)
CPT/HCPCS: 36415; 84153